=== PATIENT | male | born 1950 | race Caucasian/White ===

== ENCOUNTER 2019-09-05 16:09 | Inpatient (IN) | payer MEDICARE, OTHER ==
[~2019-09-05] VITALS: Ht 170.2 cm; Wt 70.0 kg
--- NOTE | 2019-09-05 16:19 | NUR ---
PT RPEORTS HE WAS ON TOP OF HIS GARBAGE CAN PUSHING DOWN TRASH AND FELL OFF. PT RPEORTS LOW BACK PAIN. PT HAS A LAC TO THE BACK OF HIS HEAD. PT IS NOT THINNERS BUT DOES TAKE ASA DAILY, LAST DOSE YESTERDAY. CALL LIGHT IN PLACE. DR OTT HAS SEEN PATIENT. WILL CONTINUE TO MONITOR.
[2019-09-05] MEDS ORDERED: LIDOCAINE 1%-EPI 1:100K, 20ML ONE (16:23)
[2019-09-05] MEDS ORDERED: ASPI-496 PO (16:29)
--- NOTE | 2019-09-05 16:36 | NUR ---
PT IN CT
--- NOTE | 2019-09-05 17:17 | NUR ---
TYPE CASTER IN ROOM CLEANING LAC
[2019-09-05] MEDS ORDERED: SODIUM CHLORIDE FLUSH 10ML SYR IVF ONE (17:30)
[2019-09-05] MEDS ORDERED: LISI40TA PO (17:50)
[2019-09-05] MEDS ORDERED: HYDROCHLOROTH12.5 MG PO (17:50)
[2019-09-05] MEDS ORDERED: [UNRECOGNIZED DRUG - OTHER] (17:51)
[2019-09-05] MEDS ORDERED: SIMV20TA PO (17:51)
--- NOTE | 2019-09-05 17:56 | NUR ---
PT HAS BEEN UPDATED BY DR OTT. TO BE A CCU ADMIT. PT TALKING ON CELL PHONE IN ROOM. NO ACUTE DISTRESS NOTED. BINDER CHAINSTITCH ON. NSR NOTED. VS STABLE. CALL LIGHT IN PLACE. WILL CONTINUE TO MONITOR.
[2019-09-05 17:59] LABS: BASOPHILS # (AUTO) 0.01 x10^3/uL (0-0.1); BASOPHILS % (AUTO) 0 % (0-1); EOSINOPHILS # (AUTO) 0.05 x10^3/uL (0-0.4); EOSINOPHILS % (AUTO) 1 % (1-7); LYMPHOCYTES # (AUTO) 0.93 x10^3/uL (1-3.4); LYMPHOCYTES % (AUTO) 14 % (22-44); MD NO; MEAN CORPUSCULAR HEMOGLOBIN 33.9 pg (27.5-34.5); MEAN CORPUSCULAR HGB CONC 34.3 g/dL (33.2-36.2); MEAN CORPUSCULAR VOLUME 98.8 fL (81-97); MEAN PLATELET VOLUME 7.2 fL (7.4-10.4); MONOCYTES # (AUTO) 0.38 x10^3/uL (0.2-0.8); MONOCYTES % (AUTO) 6 % (2-9); NEUTROPHILS # (AUTO) 5.33 x10^3/uL (1.8-6.8); NEUTROPHILS % (AUTO) 80 % (42-75); PLATELET COUNT 184 x10^3/uL (130-400); RED BLOOD COUNT 3.55 x10^6/uL (4.38-5.82)
[2019-09-05] MEDS ORDERED: SODIUM CHLORIDE FLUSH 10ML SYR IVF PRN (18:00)
[2019-09-05 18:09] LABS: INTERNATIONAL NORMALIZED RATIO 0.92 (0.93-1.1); PROTHROMBIN TIME 9.7 Seconds (9.6-11.5)
[2019-09-05] MEDS ORDERED: ACETAMINOPHEN 325 MG TABLET ONE (18:13)
[2019-09-05 18:29] LABS: ALBUMIN 3.7 g/dL (3.4-5.0); ANION GAP 7 mmol/L (5-15); CALCIUM 8.8 mg/dL (8.5-10.1); CHLORIDE 106 mmol/L (98-107); CREATININE 0.91 mg/dL (0.7-1.3)
[2019-09-05] MEDS ORDERED: ACETAMINOPHEN 325 MG TABLET PO ONE (18:30)
--- NOTE | 2019-09-05 18:48 | NUR ---
PT IN ROOM ON CELL PHONE. NO ACUTE DISTRESS NOTED. SECURITY CONTROL CENTER OPERATOR ON. NSR NOTED. VS STABLE. PT DENIES HEADACHE. CALL LIGHT IN PLACE. WILL CONTINUE TO MONITOR.
[2019-09-05] MEDS ORDERED: ACETAMINOPHEN 325 MG TABLET PO PRN (19:00)
[2019-09-05] MEDS ORDERED: POLYETHYLENE GLYCOL 17 GM PACKET PO PRN (19:00)
[2019-09-05] MEDS ORDERED: LIDODERM 5% PATCH TD PRN (19:00)
[2019-09-05] MEDS ORDERED: ONDANSETRON 2MG/ML, 2ML IVPush PRN (19:00)
--- NOTE | 2019-09-05 19:00 | NUR ---
REPORT GIVEN TO LIBERTY MUSTAFA
--- NOTE | 2019-09-05 19:02 | NUR ---
REPORT RECEIVED FROM LIBERTY ISRAEL. ASSUMED CARE OF PT. PT ALERT AND ORIENTED, RESTING ON GURNEY. TEXTING ON CELL PHONE. PT DENIES ANY COMPLAINTS AT THIS TIME OTHER THAN LOWER BACK PAIN. DENIES DEE, DIZZINESS, WEAKNESS. NEURO CHECKS COMPLETED WITH LINDY. ALL INTACT, PUPILS PERRL, NO WEAKNESS IN EXTREMITIES BILATERALLY. VITALS ALL STABLE. PT AWARE TO PRESS CALL LIGHT WITH ANY CHANGES. WILL CONTINUE TO MONITOR. AWAITING BED IN CCU FOR PT.
--- NOTE | 2019-09-05 19:23 | NUR ---
PT'S SISTER, MARIIA WOULD LIKE TO BE NOTIFIED WITH ANY CHANGES IN PAITENT CONDITION. [phone]. THE PT HAS GIVEN CONSENT FOR ALL MEDICAL INFORMATION TO BE GIVEN TO HIS SISTER.
--- NOTE | 2019-09-05 19:42 | NUR ---
REPORT TO LIBERTY CRUZ. PT TO GO TO [phone]
[2019-09-05] MEDS ORDERED: SIMVASTATIN 20 MG TABLET PO SCH (21:00)
[2019-09-05] MEDS: OXYcodone IR 5MG TABLET PO PRN ×2 (21:47→22:30)
[2019-09-05] MEDS ORDERED: LACTATED RINGERS 1,000 ML IV SCH (23:55)
[2019-09-06 00:47] VITALS: BP 136/78
[2019-09-06] MEDS: OXYcodone IR 5MG TABLET PO PRN (06:21)
[2019-09-06] MEDS ORDERED: HYDROCHLOROTHIAZIDE 12.5 MG CAPSULE PO SCH (09:00)
[2019-09-06] MEDS ORDERED: SENNA/DOCUSATE TABLET PO SCH (09:00)
[2019-09-06] MEDS ORDERED: LISINOPRIL 40 MG TABLET PO SCH (09:00)
[2019-09-06] MEDS ORDERED: ACET325T26 PO (10:28)
[2019-09-06] MEDS ORDERED: OXYC5TAB3 PO (10:28)
== END 2019-09-06 12:40 | disposition home or self-care (01) | DRG 86 ==
LOC: ED 18:04 → EDIP 18:27 → CCU 19:58
PROVIDERS: ADMIT Family Medicine; ATTEND Family Medicine
PROC: 0HQ0XZZ Repair Scalp Skin, External Approach (ICD-10-PCS; principal; 2019-09-05)
DX: S06.6X0A Traumatic subarachnoid hemorrhage without loss of consciousness, initial encounter (principal); S32.040A Wedge compression fracture of fourth lumbar vertebra, initial encounter for closed fracture; E78.00 Pure hypercholesterolemia, unspecified; E78.5 Hyperlipidemia, unspecified; I10 Essential (primary) hypertension; M81.0 Age-related osteoporosis without current pathological fracture; N40.0 Benign prostatic hyperplasia without lower urinary tract symptoms; S01.01XA Laceration without foreign body of scalp, initial encounter; Z79.82 Long term (current) use of aspirin; W18.39XA Other fall on same level, initial encounter; Y93.89 Activity, other specified; Y92.89 Other specified places as the place of occurrence of the external cause; Y99.8 Other external cause status; S06.5X0A Traumatic subdural hemorrhage without loss of consciousness, initial encounter
CPT/HCPCS: 12001; 36415; 70450; 72110; 80048; 82040; 85025; 85610; 85730; 87081; G0378; J7120

== ENCOUNTER → 2019-09-16 | Outpatient (CLI) | payer MEDICARE, OTHER ==
[~2019-09-16] MED LIST: ACET325T26 PO; ASPI-496 PO; HYDROCHLOROTH12.5 MG PO; LISI40TA PO; OXYC5TAB3 PO; SIMV20TA PO; [UNRECOGNIZED DRUG - OTHER]
== END | disposition home or self-care (01) ==
LOC: RAD 12:40
PROVIDERS: ATTEND Neurological Surgery
DX: S06.5X0A Traumatic subdural hemorrhage without loss of consciousness, initial encounter (principal); X58.XXXA Exposure to other specified factors, initial encounter; Y93.89 Activity, other specified; Y92.89 Other specified places as the place of occurrence of the external cause; Y99.8 Other external cause status
CPT/HCPCS: 70450

== ENCOUNTER → 2020-01-07 | Outpatient (CLI) | payer MEDICARE, OTHER | END | disposition home or self-care (01) | LOC: RAD 10:59 | PROVIDERS: ATTEND Physician Assistant | DX: S32.048A Other fracture of fourth lumbar vertebra, initial encounter for closed fracture (principal); M41.86 Other forms of scoliosis, lumbar region; X58.XXXA Exposure to other specified factors, initial encounter; Y93.89 Activity, other specified; Y92.89 Other specified places as the place of occurrence of the external cause; Y99.8 Other external cause status | CPT/HCPCS: 72100 ==

== ENCOUNTER → 2020-03-10 | Outpatient (CLI) | payer MEDICARE, OTHER | END | disposition home or self-care (01) | LOC: RAD 11:55 | PROVIDERS: ATTEND Physician Assistant | DX: M48.56XD Collapsed vertebra, not elsewhere classified, lumbar region, subsequent encounter for fracture with routine healing (principal) | CPT/HCPCS: 72110 ==